=== PATIENT | male | born 1995 | race African-American/Black ===

== ENCOUNTER 2023-04-16 19:24 | Emergency (ER) | payer MEDICAID, SELFPAY ==
[2023-04-16 19:26] VITALS: BP 143/86; PULSE 58; RESP 16; TEMP 36.6; O2SAT 99
--- NOTE | 2023-04-16 22:05 | ED.GENADULT ---
HPI - General Adult General Chief complaint: Extremity Injury, Upper Stated complaint: R middle finger pain Time Seen by Provider: 04/16/23 21:54 Source: patient Mode of arrival: ambulatory Limitations: no limitations History of Present Illness HPI narrative: This is a 27-year-old male who presents to the ED with chief complaint of right middle finger pain for the past week. Reports he had an injury initially at work and was seen by urgent care shortly after. He states they thought it seemed to be infected so they prescribed antibiotics. Patient reports that he has taken them through the full course and continues to have increasing swelling around the end of middle finger. Reports redness and pain. Reports some drainage as well. Denies fevers, chills, nausea, vomiting. Related Data Allergies Allergy/AdvReac Type Severity Reaction Status Date / Time No Known Allergies Allergy Verified 04/16/23 22:44 Review of Systems Review of Systems: All systems as dictated in HPI Exam Narrative: GENERAL: Well-appearing, well-nourished, and in no acute distress. HEAD: Normocephalic, atraumatic. EYES: PERRLA and EOMI. ENT: Nares clear, no rhinorrhea or epistaxis. Mucous membranes moist. Oropharynx without tonsillar hypertrophy exudate or other lesions. NECK: Supple. No adenopathy or masses. CHEST: No respiratory distress. Clear to auscultation. No wheezes rales or rhonchi HEART: Regular rate and rhythm. No murmur heard. Normal peripheral pulses. ABDOMEN: Soft, nontender, nondistended, normal active bowel sounds. MSK: Normal range of motion. No edema. Negative Kan[place] signs. SKIN: Area of erythema, swelling and tenderness to the distal right finger. Swelling is around the nail fold bilaterally and there is some scant drainage from the nail fold. Warm, dry, no rash. NEURO: Alert and oriented x3. No focal deficits. PSYCH: Normal mood and affect. Course Vital Signs Vital signs: Vital Signs Temperature 97.9 F 04/16/23 19: Pulse Rate 58 L 04/16/23 19:26 Respiratory Rate 16 04/16/23 19: Blood Pressure 143/86 H 04/16/23 19:26 Pulse Oximetry 99 04/16/23 19:26 Oxygen Delivery Room Air 04/16/23 19:26 Temperature 97.9 F 04/16/23 19:26 Pulse Rate 60 04/16/23 22:44 Respiratory Rate 17 04/16/23 22:44 Blood Pressure 139/82 04/16/23 22:44 Pulse Oximetry 97 04/16/23 22:44 Oxygen Delivery Room Air 04/16/23 19:26 Medical Decision Making MDM Narrative Medical decision making narrative: This is a 27-year-old male who presents to the ED with chief complaint of right middle finger pain and swelling for the past week. Vitals are normal. Afebrile. Exam shows swelling to the distal finger consistent with paronychia. He was previously placed on antibiotics but never had the area drained. Able to gently express purulent fluid out of the nail fold after lightly skin/nail layers with a 21 gauge needle. Paronychia was fully drained. Will place on clindamycin who for purulent infection. Hand referral given if symptoms do not improve. pt will be discharged in stable condition. Return precautions given and supportive measures discussed. Pt is understanding and agreeable with plan for discharge and follow-up with PCP/hand Vital Signs Vital Signs: Vital Signs Temperature 97.9 F 04/16/23 19:26 Pulse Rate 58 L 04/16/23 19:26 Respiratory Rate 16 04/16/23 19:26 Blood Pressure 143/86 H 04/16/23 19:26 Pulse Oximetry 99 04/16/23 19:26 Oxygen Delivery Room Air 04/16/23 19:26 Temperature 97.9 F 04/16/23 19:26 Pulse Rate 60 04/16/23 22:44 Respiratory Rate 17 04/16/23 22:44 Blood Pressure 139/82 04/16/23 22:44 Pulse Oximetry 97 04/16/23 22:44 Oxygen Delivery Room Air 04/16/23 19:26 Discharge Plan Discharge Clinical Impression: Paronychia Patient Disposition: Home, Self-Care Condition: Stable Instructions: Antibiotic Form
[2023-04-16 22:44] VITALS: BP 139/82; PULSE 60; RESP 17; O2SAT 97
== END 2023-04-16 22:48 | disposition home or self-care (01) ==
PROVIDERS: Emergency Provider Physician Assistant
DX: L03.011 Cellulitis of right finger (principal)
CPT/HCPCS: 99283